=== PATIENT | female | born 1975 | race African-American/Black ===

== ENCOUNTER 2020-11-25 03:58 | Emergency (ER) | payer MEDICAID, OTHER ==
[~2020-11-25] VITALS: Ht 162.6 cm; Wt 64.0 kg
[2020-11-25 03:59] VITALS: BP 128/72
[2020-11-25] MEDS ORDERED: VISCOUS LIDOCAINE 2% 15 ML UDC MM STA (04:28)
[2020-11-25] MEDS ORDERED: KETOROLAC 60MG/2ML VIAL IM ONE (04:30)
[2020-11-25 05:02] LABS: CLARITY URINE CLEAR (CLEAR); COLOR URINE YELLOW (YELLOW); KETONES URINE NEGATIVE (NEGATIVE); LEUKOCYTE ESTERASE URINE 2+ (NEGATIVE); NITRITE URINE NEGATIVE (NEGATIVE); OCCULT BLOOD URINE NEGATIVE (NEGATIVE); PH URINE 5.5 (4.5-8.0); PROTEIN URINE NEGATIVE (NEGATIVE)
[2020-11-25] MEDS ORDERED: CEPH500C2 MT (05:16)
[2020-11-25 05:24] LABS: METHADONE URINE SCREEN NEGATIVE (NEGATIVE); OPIATES URINE SCREEN NEGATIVE (NEGATIVE)
[2020-11-25] MEDS: CEPHALEXIN 250MG CAPSULE PO NR ×2 (05:24→05:48)
[2020-11-25 05:25] LABS: *BARBITURATES SCREEN URINE NEGATIVE (NEGATIVE); *BENZODIAZEPINES SCREEN URINE NEGATIVE (NEGATIVE); *COCAINE SCREEN URINE NEGATIVE (NEGATIVE)
[2020-11-25 05:33] LABS: *AMPHETAMINES SCREEN URINE PRESUMTIVE POSITIVE (NEGATIVE); CANNABINOID URINE SCREEN PRESUMTIVE POSITIVE (NEGATIVE); PHENCYCLIDINE URINE SCREEN PRESUMTIVE POSITIVE (NEGATIVE)
== END 2020-11-25 05:49 | disposition home or self-care (01) ==
LOC: ER 03:58
DX: N39.0 Urinary tract infection, site not specified (principal); Z20.822 Contact with and (suspected) exposure to COVID-19; J45.909 Unspecified asthma, uncomplicated
CPT/HCPCS: 80305; 81003; 96372; 99283; C9803; J1885; U0003

== ENCOUNTER 2020-12-11 03:42 | Emergency (ER) | payer MEDICAID, OTHER ==
[~2020-12-11] VITALS: Ht 162.6 cm; Wt 65.0 kg
[~2020-12-11 03:42] MED LIST: CEPH500C2 MT
[2020-12-11 05:01] VITALS: BP 110/66
[2020-12-11] MEDS ORDERED: ACET-2708 MT (05:47)
[2020-12-11] MEDS ORDERED: ACETAMINOPHEN 325MG TABLET PO ONE (06:00)
== END 2020-12-11 06:10 | disposition home or self-care (01) ==
LOC: ER 03:42
DX: A63.0 Anogenital (venereal) warts (principal); J45.909 Unspecified asthma, uncomplicated; Z98.890 Other specified postprocedural states; Z79.899 Other long term (current) drug therapy
CPT/HCPCS: 99282